=== PATIENT | female | born 1950 | race Caucasian/White ===

== ENCOUNTER 2024-06-30 06:10 | Observation (INO) | payer MEDICARE, OTHER ==
[2024-06-27 11:37] VITALS: BMI 25.7
[2024-06-30] MEDS ORDERED: Thrombin 5000 UNITS/5 ML VIAL ONE (06:26)
[2024-06-30] MEDS ORDERED: Vancomycin 1 GM VIAL ONE (06:26)
[2024-06-30] MEDS ORDERED: Sodium Chloride 0.9% 100 ML ONE (06:52)
[2024-06-30] MEDS ORDERED: CEFAZOLIN 2 GM VIAL ONE (06:52)
[2024-06-30] MEDS ORDERED: PROPOFOL 20 ML ONE (06:56)
[2024-06-30] MEDS ORDERED: fentaNYL PF 100 MCG/2 ML SYRINGE ONE ×2 (06:56→10:18)
[2024-06-30] MEDS ORDERED: Rocuronium Bromide 10 MG/ML (10ML VIAL) ONE (06:57)
[2024-06-30] MEDS ORDERED: Lidocaine 1% PF 5 ML VIAL ONE (06:57)
[2024-06-30] MEDS ORDERED: Scopolamine 1 mg/72 hour Patch ONE (07:28)
[2024-06-30] MEDS ORDERED: Famotidine/PF 20 mg/2ml Vial ONE (07:28)
[2024-06-30] MEDS ORDERED: Dexamethasone 20 MG/5 ML VIAL ONE (08:12)
[2024-06-30] MEDS ORDERED: ePHEDrine Sulfate 50 MG/10 ML VIAL ONE (08:52)
[2024-06-30] MEDS ORDERED: Ondansetron PF 4 MG/2 ML Vial ONE (09:36)
[2024-06-30] MEDS ORDERED: SUGAMMADEX SODIUM 200 MG/2 ML VIAL ONE (10:09)
[2024-06-30] MEDS ORDERED: Dexmedetomidine 200 MCG/2 ML VIAL ONE (10:18)
[2024-06-30] MEDS ORDERED: Ondansetron HCl/PF 4 MG/2 ML Vial IVP PRN (10:42)
[2024-06-30] MEDS ORDERED: Promethazine HCl 25 MG/ML VIAL IM PRN (10:42)
[2024-06-30] MEDS ORDERED: MINERAL OIL/WHITE PETROLATUM 3.5 GM TUBE ONE (11:06)
[2024-06-30] MEDS ORDERED: Ondansetron PF 4 MG/2 ML Vial IVP PRN (11:14)
[2024-06-30] MEDS ORDERED: diphenhydrAMINE 25 MG CAP PO PRN (11:14)
[2024-06-30] MEDS ORDERED: Milk Of Magnesia 30 ML UDCUP PO PRN (11:14)
[2024-06-30] MEDS ORDERED: Acetaminophen 325 MG TAB PO PRN (11:14)
[2024-06-30] MEDS ORDERED: HYDROcodone/Acetaminophen 5/325 mg Tablet PO PRN (11:16)
[2024-06-30] MEDS ORDERED: Benzocaine/Menthol 1 LOZ LOZ PO PRN (11:17)
[2024-06-30] MEDS ORDERED: hydrALAZINE 20 MG/ML VIAL SLOW IVP PRN (11:17)
[2024-06-30] MEDS ORDERED: fentaNYL 50 mcg/mL 1 mL Vial ONE ×3 (11:41→13:09)
[2024-06-30] MEDS ORDERED: hydrALAZINE 20 MG/ML VIAL ONE (13:10)
[2024-06-30] MEDS: Morphine 2 MG/ML VIAL SLOW IVP PRN (15:57)
[2024-06-30] MEDS: CEFAZOLIN 2 GM in Sodium Chloride 0.9% 100 ML IVPB SCH (15:58)
[2024-06-30] MEDS: metFORMIN 500 MG TAB PO SCH (16:14)
[2024-06-30] MEDS: traMADol HCl 50 MG TAB PO PRN (17:18)
[2024-06-30] MEDS: Sodium Chloride 0.9% 1,000 ML IV SCH (18:52)
[2024-06-30] MEDS: tiZANidine HCl 4 MG TAB PO PRN (20:46)
[2024-06-30] MEDS: HYDROcodone/Acetaminophen 7.5/325 mg Tablet PO PRN (23:46)
[2024-07-01] MEDS: Losartan 25 MG TAB PO SCH (09:27)
[2024-07-01] MEDS: Hydrochlorothiazide 25 MG TAB PO SCH (09:30)
[2024-07-01] MEDS: Cholecalciferol 1,000 UNITS (25 MCG) TAB PO SCH (09:30)
[2024-07-01] MEDS: Cyanocobalamin (Vitamin B-12) 1,000 MCG TAB PO SCH (09:31)
[2024-07-01] MEDS: Atorvastatin Calcium 10 MG TAB PO SCH (09:31)
[2024-07-01] MEDS: Metoprolol Tartrate 50 MG TAB PO SCH (09:32)
[2024-07-01 12:14] VITALS: BP 93/58; TEMP 97.6
== END 2024-07-01 15:30 | disposition home or self-care (01) ==
LOC: SDC 06:10 → SURG B 11:14
PROVIDERS: ADMIT Surgery; ATTEND Surgery
PROC: 01NB0ZZ Release Lumbar Nerve, Open Approach (ICD-10-PCS; principal; 2024-06-30)
DX: M48.062 Spinal stenosis, lumbar region with neurogenic claudication (principal)
CPT/HCPCS: 63047; 63048 ×2; J0360; J1100; J2272; J2405; J2704; J3010; J3370; J3490